=== PATIENT | female | born 1950 | race Hispanic/Latino ===

== ENCOUNTER 2018-07-10 13:44 | Emergency (ER) | payer MEDICARE ==
[2018-07-10 15:53] LABS: Absolute Lymphocytes (CBC) 1.6 K/uL (0.7-4.9); Absolute Monocytes 0.4 K/uL (0.1-1.3); Absolute Neutrophil 3.8 K/uL (1.8-8.0); Basophils % 1.2 % (0-1.3); Eosinophils % 2.3 % (0-4.4); Hematocrit 39.3 % (36.0-45.0); Lymphocytes % 26.9 % (15.3-44.8); MPV 8.3 fL (7.6-11.3); Monocytes % 7.3 % (3.3-12.3); RBC Red Blood Cell Count 4.28 M/uL (3.86-4.86)
--- NOTE | 2018-07-10 16:17 | RAD REPORT ---
EXAM DESCRIPTION: RAD - Chest Single View - 07/10/2018 4:03 pm CLINICAL HISTORY: Dyspnea COMPARISON: None. TECHNIQUE: AP portable chest image was obtained 1558 hours . FINDINGS: Lung volumes are low. No focal mass or consolidation. No significant failure or volume ove rload suspected. Heart and vasculature are normal. No measurable pleural effusion and no pneumothorax . No acute bony abnormality seen. No acute aortic findings suspected. IMPRESSION: Shallow inspiration film without acute cardiopulmonary finding.
[2018-07-10 16:18] LABS: ALT/SGPT 75 U/L (12-78); AST/SGOT 49 U/L (15-37); Alkaline Phosphatase 86 U/L (45-117); BUN Blood Urea Nitrogen 17 mg/dL (7-18); Bicarbonate 30 mmol/L (21-32); Bilirubin Direct 0.1 mg/dL (0-0.2); Bilirubin Total 0.5 mg/dL (0.2-1.0); Glucose Level 101 mg/dL (74-106); Magnesium 2.2 mg/dL (1.8-2.4); NT PRO-BNP 32 pg/mL (<125); Potassium 3.7 mmol/L (3.5-5.1); Protein, Total 7.6 g/dL (6.4-8.2); Sodium Level 142 mmol/L (136-145); Troponin (Emerg Dept Use Only) < 0.02 ng/mL (0.0-0.045)
[2018-07-10 16:26] LABS: Protime INR 0.97
--- NOTE | 2018-07-10 16:43 | RAD REPORT ---
EXAM DESCRIPTION: US - Extrem Venous W Compress Wei - 07/10/2018 4:25 pm COMPARISON: None. TECHNIQUE: Real-time sonographic evaluation of the bilateral lower extremity common femoral, superfi cial femoral, popliteal and posterior tibial veins was performed. FINDINGS: Normal compressibility, flow augmentation, phasic flow and spontaneous flow are identified in the left and right lower extremity common femoral, superficial femoral, popliteal and posterior t ibial veins. No intraluminal filling defects seen. IMPRESSION: No DVT in either lower extremity.
--- NOTE | 2018-07-10 17:02 | ER ---
Nurse's Notes [facility] Name: Chuyita Santiago Age: 67 yrs Sex: Female : 1950 Arrival Date: 07/10/2018 Time: 13:50 Bed 23 Private MD: Diagnosis: Edema, unspecified-lower extremity secondary to medication Presentation: 07/10 14:24 Presenting complaint: Patient states: bilateral leg swelling and shortness of breath x ss 5 days. Pt has been seen by 2 doctors in [place] who told her it may be CHF, gave her diuretics, which are reportedly not helping. Transition of care: patient was not received from another setting of care. Onset of symptoms was July 06, 2018. Risk Assessment: Do you want to hurt yourself or someone else? Patient reports no desire to harm self or others. Initial Sepsis Screen: Does the patient meet any 2 criteria? No. Patient's initial sepsis screen is negative. Does the patient have a suspected source of infection? No. Patient's initial sepsis screen is negative. Care prior to arrival: None. 14:24 Method Of Arrival: Ambulatory ss 14:24 Acuity: ANA 3 ss Historical: - Allergies: 14:26 No Known Allergies; ss - Immunization history:: Adult Immunizations up to date. - Social history:: Smoking status: Patient/guardian denies using tobacco. - Ebola Screening: : Patient denies exposure to infectious person Patient denies travel to an Ebola-affected area in the 21 days before illness onset. Screenin:46 Abuse screen: Denies threats or abuse. Denies injuries from another. Nutritional aj screening: No deficits noted. Tuberculosis screening: No symptoms or risk factors identified. Fall Risk None identified. Assessment: 15:46 General: Appears in no apparent distress. comfortable, Behavior is calm, cooperative, aj appropriate for age. Pain: Denies pain. Neuro: Level of Consciousness is awake, alert, obeys commands, Oriented to person, place, time, situation, Appropriate for age. Respiratory: Airway is patent Respiratory effort is even, unlabored, Respiratory pattern is regular, symmetrical. Derm: Skin is intact, is healthy with good turgor, Skin is pink, warm \T\ dry. normal. 17:11 Reassessment: Patient appears in no apparent distress at this time. No changes from aj previously documented assessment. Patient and/or family updated on plan of care and expected duration. Pain level reassessed. Patient is alert, oriented x 3, equal unlabored respirations, skin warm/dry/pink. Vital Signs: 14:26 BP 122 / 85; Pulse 69; Resp 20; Temp 98.1(O); Pulse Ox 98% on R/A; Weight 77.11 kg; ss Height 5 ft. 1 in. (154.94 cm); Pain 0/10; 17:11 BP 121 / 78; Pulse 81; Resp 20; Temp 98.7(O); Pulse Ox 99% ; aj 14:26 Body Mass Index 32.12 (77.11 kg, 154.94 cm) ED Course: 13:50 Patient arrived in ED. mr 14:25 Triage completed. ss 14:26 Arm band placed on right wrist. ss 15:19 Moises Teran PA is PHCP. jr8 15:19 José Manuel Santacruz MD is Attending Physician. jr8 15:27 Krystina Keller, RN is Primary Nurse. aj 15:46 Patient has correct armband on for positive identification. aj 15:46 Inserted saline lock: 22 gauge in right forearm, using aseptic technique. Blood aj collected. 15:56 EKG done, by rehabilitation tech. reviewed by Moises VILLALOBOS. 3 16:03 XRAY Chest (1 view) In Process Unspecified. EDMS 16:25 US Extremity Venous W Compression Wei In Process Unspecified. EDMS 17:11 No provider procedures requiring assistance completed. IV discontinued, intact, aj bleeding controlled, No redness/swelling at site. Pressure dressing applied. Administered Medications: No medications were administered Outcome: 17:02 Discharge ordered by . evangelist 17:11 Discharged to home ambulatory. aj 17:11 Condition: good 17:11 Discharge instructions given to patient, Instructed on discharge instructions, follow up and referral plans. medication usage, Demonstrated understanding of instructions, follow-up care, medications, Prescriptions given X 1. 17:13 Patient left the ED. aj Signatures: Dispatcher [employer] EDMS Krystina Keller, RN Juanis Collins Isabel Mcintyre RN RN ss Roszak, Josh, PA PA jr8 Ruchi Gold 3 Corrections: (The following items were deleted from the chart) 14:25 14:22 Presenting complaint: ss ss
--- NOTE | 2018-07-10 17:02 | EDPHYS ---
Physician Documentation [facility] Name: Chuyita Santiago Age: 67 yrs Sex: Female : 1950 Arrival Date: 07/10/2018 Time: 13:50 Bed 23 Private MD: ED Physician José Manuel Santacruz HPI: 07/10 15:20 This 67 yrs old Female presents to ER via Ambulatory with complaints of Leg jr8 Swelling. 15:20 Patient reports SOB on exertion and bilateral leg swelling since traveling to [place] by [employer] airplane one week ago. Onset: The symptoms/episode began/occurred last week. Severity of symptoms: Pain is currently a 0 / 10. The patient has not experienced similar symptoms in the past. The patient has been recently seen by a physician: Seen in [place] by two PCPs but refused a work up at that time. Patient reports SOB while walking and bilateral leg swelling. Denies CP, palpitations, or hormone use. States prior to leaving for [place] she did notice a dry cough. Historical: - Allergies: 14:26 No Known Allergies; ss - Immunization history:: Adult Immunizations up to date. - Social history:: Smoking status: Patient/guardian denies using tobacco. - Ebola Screening: : Patient denies exposure to infectious person Patient denies travel to an Ebola-affected area in the 21 days before illness onset. ROS: 15:20 Constitutional: Negative for fever, chills, and weight loss, ENT: Negative for injury, jr8 pain, and discharge, Cardiovascular: Negative for chest pain, palpitations, and edema, Abdomen/GI: Negative for abdominal pain, nausea, vomiting, diarrhea, and constipation, Skin: Negative for injury, rash, and discoloration, Neuro: Negative for headache, weakness, numbness, tingling, and seizure, Psych: Negative for depression, anxiety, suicide ideation, homicidal ideation, and hallucinations. 15:20 Respiratory: Positive for cough, with no reported sputum, shortness of breath, on exertion. Negative for hemoptysis, orthopnea, pleurisy. 15:20 MS/extremity: Positive for swelling, Negative for injury or acute deformity, decreased range of motion, deformity, ecchymosis, erythema, pain, warmth. Exam: 16:26 Constitutional: This is a well developed, well nourished patient who is awake, alert, jr8 and in no acute distress. Neck: Trachea midline, no thyromegaly or masses palpated, and no cervical lymphadenopathy. Supple, full range of motion without nuchal rigidity, or vertebral point tenderness. No Meningismus. Chest/axilla: Normal chest wall appearance and motion. Nontender with no deformity. No lesions are appreciated. Cardiovascular: Regular rate and rhythm with a normal S1 and S2. No gallops, murmurs, or rubs. Normal PMI, no JVD. No pulse deficits. Respiratory: Lungs have equal breath sounds bilaterally, clear to auscultation and percussion. No rales, rhonchi or wheezes noted. No increased work of breathing, no retractions or nasal flaring. Skin: Warm, dry with normal turgor. Normal color with no rashes, no lesions, and no evidence of cellulitis. MS/ Extremity: Pulses equal, no cyanosis. Neurovascular intact. Full, normal range of motion. Neuro: Awake and alert, GCS 15, oriented to person, place, time, and situation. Cranial nerves II-XII grossly intact. Motor strength 5/5 in all extremities. Sensory grossly intact. Cerebellar exam normal. Normal gait. Vital Signs: 14:26 BP 122 / 85; Pulse 69; Resp 20; Temp 98.1(O); Pulse Ox 98% on R/A; Weight 77.11 kg; ss Height 5 ft. 1 in. (154.94 cm); Pain 0/10; 17:11 BP 121 / 78; Pulse 81; Resp 20; Temp 98.7(O); Pulse Ox 99% ; aj 14:26 Body Mass Index 32.12 (77.11 kg, 154.94 cm) ss MDM: 15:20 Patient medically screened. jr8 16:39 Data reviewed: vital signs, nurses notes, lab test result(s), cardiac enzymes, CBC, jr8 electrolytes, D-dimer, EKG. Data interpreted: Pulse oximetry: on room air is 99 %. Interpretation: normal. Test interpretation: by ED physician or midlevel provider: plain radiologic studies. Counseling: I had a detailed discussion with the patient and/or guardian regarding: the historical points, exam findings, and any diagnostic results supporting the discharge/admit diagnosis, lab results, radiology results. ED course: PERC score reveals low risk for PE. Patient to follow up with her physician in 2-3 days. 17:06 ED course: Spoke with patient about results. Counseled patient on medication side jr8 effect from Amlodipine. Will change Rx to lower dosage. Encouraged patient to use compression socks. Patient to follow up with PCP. 07/10 15:34 Order name: Basic Metabolic Panel; Complete Time: 16:38 07/10 15:34 Order name: CBC with Diff; Complete Time: 16:38 07/10 15:34 Order name: LFT's; Complete Time: 16:38 07/10 15:34 Order name: Magnesium; Complete Time: 16:38 07/10 15:34 Order name: NT PRO-BNP; Complete Time: 16:38 07/10 15:34 Order name: PT-INR; Complete Time: 16:38 07/10 15:34 Order name: Troponin (emerg Dept Use Only); Complete Time: 16:38 07/10 15:34 Order name: XRAY Chest (1 view); Complete Time: 16:38 07/10 15:34 Order name: EKG; Complete Time: 15:35 07/10 15:34 Order name: EKG - Nurse/Tech 07/10 15:34 Order name: IV Saline Lock; Complete Time: 15:48 07/10 15:35 Order name: DD; Complete Time: 16:38 07/10 15:35 Order name: US Extremity Venous W Compression Wei; Complete Time: 16:45 07/10 15:35 Order name: Labs collected and sent; Complete Time: 15:48 07/10 15:35 Order name: O2 Per Protocol; Complete Time: 15:48 07/10 15:35 Order name: O2 Sat Monitoring; Complete Time: 15:48 EC:56 Rate is 61 beats/min. Rhythm is regular. QRS Dawson is Normal. HI interval is normal. QRS jr8 interval is normal. QT interval is normal. No ST changes noted. Clinical impression: Normal ECG. Administered Medications: No medications were administered Disposition: 07/11 07:03 Co-signature as Attending Physician, José Manuel KESSLER I agree with the assessment and carl plan of care. Disposition: 07/10/18 17:02 Discharged to Home. Impression: Edema, unspecified - lower extremity secondary to medication . - Condition is Stable. - Discharge Instructions: Edema, Peripheral Edema. - Medication Reconciliation Form, Thank You Letter, Antibiotic Education, Prescription Opioid Use form. - Follow up: Private Physician; When: 2 - 3 days; Reason: Recheck today's complaints, Continuance of care, Re-evaluation by your physician. - Problem is new. - Symptoms are unchanged. Signatures: Dispatcher [employer] EDKrystina Schwab RN RN aj Anderson, Corey, MD MD cha Smirch, Shelby, RN RN ss Roszak, Josh, PA PA jr8 Corrections: (The following items were deleted from the chart) 07/10 17:13 17:02 07/10/2018 17:02 Discharged to Home. Impression: Edema, unspecified - lower aj extremity secondary to medication . Condition is Stable. Forms are Medication Reconciliation Form, Thank You Letter, Antibiotic Education, Prescription Opioid Use. Follow up: Private Physician; When: 2 - 3 days; Reason: Recheck today's complaints, Continuance of care, Re-evaluation by your physician. Problem is new. Symptoms are unchanged. jr8
--- NOTE | 2018-07-11 06:07 | EKG ---
Test Date: 2018-07-10 Test Time: 15:56:34 Engineering Test Specialist: NAWAF MEASUREMENT RESULTS: Intervals: Rate: 61 TX: 170 QRSD: 88 QT: 444 QTc: 446 [place]: P: 33 TX: 170 QRS: 2 T: 28 INTERPRETIVE STATEMENTS: Normal sinus rhythm Normal ECG No previous ECG available for comparison Electronically Signed On 07-11-18 06:05:41 CDT by Rafa Oreilly
== END 2018-07-10 17:13 | disposition home or self-care (01) ==
LOC: ER 13:44
DX: R60.0 Localized edema (principal); T50.905A Adverse effect of unspecified drugs, medicaments and biological substances, initial encounter
CPT/HCPCS: 36415; 71045; 80048; 80076; 83735; 83880; 84484; 85025; 85379; 85610; 93005; 93970; 99284